=== PATIENT | male | born 1965 | race Caucasian/White ===

== ENCOUNTER 2024-08-24 17:19 | Inpatient (IN) | payer MEDICARE, MEDICAID ==
[2024-08-24] MEDS ORDERED: IBUPROFEN 600 MG TAB PO PRN (17:37)
[2024-08-24] MEDS ORDERED: MAGNESIUM HYDROXIDE 2,400 MG/30 ML CUP PO PRN (17:37)
[2024-08-24] MEDS ORDERED: HALOPERIDOL LACTATE 5 MG/ML 1 ML VIAL IM PRN (17:37)
[2024-08-24] MEDS ORDERED: ACETAMINOPHEN TAB 325 MG TAB PO PRN (17:37)
[2024-08-24] MEDS ORDERED: LORazepam 1 MG TAB PO PRN (17:37)
[2024-08-24] MEDS ORDERED: MAG HYDROX/AL HYDROX/SIMETH 355 ML BOTTLE PO PRN (17:37)
--- NOTE | 2024-08-25 06:03 | P.CONS ---
History of Present Illness - Reason for Consult Consult date: 08/25/24 medical comanagmeent - Chief Complaint SI - History of Present Illness is a 59-year-old male with past medical history of generalized anxiety disorder and ADHD. He presents to hospital today complaining of suicidal ideation. He reports that he has been having thoughts of major depression and wanting to hurt himself. He denies any plan. He did not present to the hospital for evaluation where he was transferred from [facility]. He is currently seen in room 320. His most recent blood pressure was 168/93 with a heart rate of 73 His temperature is 97.6. He reports that he does not feel as if he has a high blood pressure and reports that the machines are defective. He reports that he takes Adderall and Xanax at home. He reports he uses tobacco. Denies any recreational drug use and denies alcohol use. Review of Systems ROS negative except for hpi Past Medical History Past Medical History: No Reported History History of Any Multi-Drug Resistant Organisms: None Reported Past Surgical History: No Surgical Hx Reported Past Anesthesia/Blood Transfusion Reactions: No Reported Reaction Past Psychological History: ADD/ADHD, Anxiety, Bipolar, Depression Smoking Status: Current every day smoker Past Alcohol Use History: None Reported Past Drug Use History: Marijuana Additional Drug Use History / Comment(s): Pt does not report any drug use; but UDS positive for THC Medications and Allergies Allergies Allergy/AdvReac Type Severity Reaction Status Date / Time No Known Allergies Allergy Verified 08/24/24 17:36 Physical Exam Vitals: Vital Signs Temp Pulse Resp BP 08/25/24 01:42 97.6 F 73 18 168/93 Intake and Output 08/24/24 08/24/24 08/25/24 14:59 22:59 06:59 Other: Weight 118 kg 125.1 kg General: non toxic, no distress Derm: warm, dry Head: atraumatic, normocephalic, symmetric Eyes: EOMI, no lid lag, anicteric sclera, pupils equal round reactive to light ENT: Nose and ears atraumatic, no thrush, no pharyngeal erythema Neck: No thyromegaly, no cervical lymphadenopathy, trachea midline, supple Mouth: no lip lesion, mucus membranes moist Cardiovascular: S1S2 reg, no murmur Lungs: clear to ascultation bilatera Abdominal: soft, nontender to palpation, no guarding, no appreciable organomegaly, normal bowel sounds Ext: no gross muscle atrophy, muscle strength muscle strength 5 out of 5 in all 4 extremities, no contractures Neuro: moving all extremeties spontanously Psych:defensive Assessment and Plan Assessment: #) Suicidal ideation, primary management as per psychaitry team #) Elevated BP without formal diagnosis of primary BP. Continue to monitor his blood pressure. He reports that the machines are defective and he does not want to take antihypertensives. I would monitor his blood pressure while inpatient and reconsider starting antihypertensives if persistently elevated #) class 2 obesity, recommend weight loss #) tobacco use, tobacco cessation encouraged. nicotine patch while inpatient #) generalized anxiety disorder on xanax at home #) ADHD on addreall at home CBC CMP A1c lipid profile TSH urine drug screen pending at the time of this writing. Thank you for allowing us to take care of this patient
[2024-08-25] MEDS: NICOTINE 14MG/24HR PATCH TRANSDERM SCH (09:16)
[2024-08-25 09:27] LABS: Basophils # (A) 0.05 10*3/uL (0.00-0.10); Basophils % (A) 0.7 %; Eosinophils # (A) 0.14 10*3/uL (0.04-0.35); Eosinophils % (A) 1.9 %; HCT 45.6 % (39.6-50.0); HGB 15.3 g/dL (13.0-17.0); Lymphocytes # (A) 1.38 10*3/uL (0.90-5.00); Lymphocytes % (A) 19.2 %; MCH 32.5 pg (27.0-32.0); MCHC 33.6 g/dL (32.0-37.0); MCV 96.8 fL (80.0-97.0); Monocytes # (A) 0.52 10*3/uL (0.20-1.00); Monocytes % (A) 7.2 %; Neutrophils # (A) 5.08 10*3/uL (1.80-7.70); Neutrophils % (A) 70.9 %; Platelet Count 182 10*3/uL (140-440); RBC 4.71 10*6/uL (4.40-5.60); RDW 14.2 % (11.5-14.5); WBC 7.18 10*3/uL (4.50-10.00)
[2024-08-25 09:43] LABS: ALT 14 U/L (4-49); AST 15 U/L (17-59); African American GFR (CKD) >90 (>60 ml/min/1.73 sqM); Albumin 4.1 g/dL (3.5-5.0); Alkaline Phosphatase 89 U/L (38-126); Anion Gap 10 mmol/L; Blood Urea Nitrogen 18 mg/dL (9-20); Calcium 9.1 mg/dL (8.4-10.2); Carbon Dioxide 24 mmol/L (22-30); Chloride 108 mmol/L (98-107); Glucose 133 mg/dL (74-99); Non-African American GFR(CKD) >90 (>60 ml/min/1.73 sqM); Potassium 4.5 mmol/L (3.5-5.1); Sodium 142 mmol/L (137-145); Total Protein 6.8 g/dL (6.3-8.2)
--- NOTE | 2024-08-25 12:31 | P.HP ---
Psychiatric H&P - . H&P Date: 08/25/24 History & Physical: Allergies Allergy/AdvReac Type Severity Reaction Status Date / Time No Known Allergies Allergy Verified 08/24/24 17:36 Vital Signs Temp 97.6 F 08/25/24 01:42 Pulse 73 08/25/24 01:42 Resp 18 08/25/24 01:42 BP 168/93 08/25/24 01:42 Pulse Ox FiO2 Intake & Output 08/24/24 08/25/24 08/25/24 18:59 06:59 18:59 Weight 118 kg 125.1 kg Dictation was produced using [employer] dictation software. Please excuse any grammatical, word or spelling errors. IDENTIFYING DATA: Patient is a 59 years old male past psychiatric history of KATTY, and ADHD presenting from [facility] ER with suicidal ideation with no plan. HPI: Patient presented to the hospital as a transfer from [facility], he was presented there for suicidal ideation without a plan, per report he wants to for the past few weeks, not eating or sleeping, has not been compliant with his medication. He has been verbally aggressive however no physical aggression, history of being agitated, anxious, and having hostile mood. Per petition " patient came into ED saying he has had continuous feeling of wanting to harm himself for the past 2-3 weeks. He stated that he came to the ED before he did something to kill himself. He has not been eating or sleeping or taking his psychiatric medications." Per clinical certification " suicidal ideation, no plan, but wants to , not taking his psychiatric medication, not eating or drinking." Upon evaluation in the unit the patient was in his room, agreed to speak with the race and sports book writer in the office, he states that he had bad couple of weeks, being out of his medications, was suicidal however no plan. States that he is willing to get some help. He states that he has been feeling sad, down, depressed for about 2 weeks since he stopped his medications, reported some feeling of being hopeless. He denied any current SI/HI or self harm, states that he has been having some suicidal thoughts for about 2 weeks however he denied any intention or plan, denied any history of suicide. States that he has been sleeping too much, his appetite is not that great for the last 2 weeks. 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 States he has been with out sleep for about 48 hours prior to coming to the hospital, reported that he was having history of bipolar disorder as a child. He reported racing thoughts and flight of ideas. At this time patient denies any auditory or visual hallucinations, paranoia or delusion. Patient denies any recreational drug use and denies alcohol use. States that at times he use cannabis, using tobacco 1/2 PPD. The patient has a good insight into his mental illness, he was calm, cooperative during interview, agreed to follow-up with treatment recommendation. He was able to talk about the last couple of weeks since he has been under stress since his business has been slow down and that is when he had the suicidal thoughts however denied any plan or intention and reported that he immediately asked for help. Reported that he wanted to take his medication and follow-up with his outpatient doctor. PAST PSYCHIATRIC HISTORY: - Inpatient Hospitalizations: pt reported being in the hospital once or twice before - Outpatient Care: Dr. Quinones at [facility] - Current Psychotropics: Adderall 20 mg, Xanax 1mg, Zyprexa 10 mg once in the morning - Prior Psychotropics/Therapy: could not recall - Prior Psychiatric dx: bipolar I disorder - Trauma History: denies - Suicidal attempt: denies PMH: as per ER note Past Medical History: No Reported History History of Any Multi-Drug Resistant Organisms: None Reported Past Surgical History: No Surgical Hx Reported Past Anesthesia/Blood Transfusion Reactions: No Reported Reaction Past Psychological History: ADD/ADHD, Anxiety, Bipolar, Depression Smoking Status: Current every day smoker Past Alcohol Use History: None Reported Past Drug Use History: Marijuana Additional Drug Use History / Comment(s): Pt does not report any drug use; but UDS positive for THC ALLERGIES: as per EMR CHEMICAL DEPENDENCY HISTORY: as per HPI FAMILY PSYCHIATRIC/SUBSTANCE USE HISTORY: sister, dad and son has depression SOCIAL HISTORY: Patient was born and raised in [place], 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 Has 2 sisters lives out of the country. Denied any legal history MENTAL STATUS EXAM: General Appearance: Patient appears to be stated age is alert, directable, and attempts to cooperate. Patient appears to have fair hygiene and grooming. Behavior: Patient is seated without any agitated behavior. Speech: Patient's speech is fluent and nonpressured. Mood/Affect: Patient reports their mood is "down a little", affect is congruent and constricted. Suicidality/Homicidality: Patient denies having any homicidal ideation intent or plan. Denies any suicidal ideations intent or plan. With that he had suicidal thoughts prior to coming to the hospital however denied any current thoughts during assessment Perceptions: Patient denies any visual hallucinations and denies any auditory hallucinations Though content/process: There is no evidence of any delusional thought content and thought process is linear and goal-directed. Memory and concentration: AOX3, grossly intact for the purposes of this session. Judgment and insight: poor STRENGTHS/WEAKNESSES: strength is that patient is resilient. Weakness is that patient has poor judgment and is impulsive INTELLECT: average IMPRESSIONS: Bipolar disorder, depressed Rule out adjustment disorder with anxious and depressed mood Cannabis use Nicotine use disorder PLAN: -Patient is admitted under voluntary status to [facility]HU for stabilization of psychiatric symptoms and safety. Patient has signed adult voluntary form and medication consent and is placed in patient's chart. Initially the patient was on a petition and clinical CERT however he agreed to take his medication and follow our treatment recommendation, will switch to voluntary. -Medications : We will restart the patient home medication which include - Zyprexa 10 mg p.o. at bedtime -Will hold Adderall, and Xanax -The patient agreed with the plan, reported that he is willing to take his medication and is planning to follow-up with his outpatient doctor after discharge. -Ativan and Haldol PRN for agitation/aggression -Patient was counselled on cannabis and tobacco use and desired to cut back on use -Patient was informed of the risks, benefits and side effects of the medication and patient verbally consented to taking the medications. Patient signed med consent form and was placed in chart. -Internal Medicine consult to perform medical evaluation and physical. -NRT - nicotine patch -SW on board for discharge planning. Encourage patient to participate in groups to work on coping skills. Collateral will be helpful from the patient outpatient 08/25/24 09:20 08/25/24 12:00
[2024-08-25 13:36] LABS: Cholesterol 190.00 mg/dL (0.00-200.00); HDL Cholesterol 40.50 mg/dL (40.00-60.00); LDL Cholesterol,Calculated 122.3 mg/dL (0.0-131.0); Triglycerides 136.00 mg/dL (0.00-149.00); VLDL Calculation 27.20 mg/dL (5.00-40.00)
[2024-08-25] MEDS: OLANZapine 10 MG TAB PO SCH (21:10)
--- NOTE | 2024-08-26 14:01 | P.PN ---
Progress Note - Text Progress Note Date: 08/26/24 Dictation was produced using [employer] dictation software. Please excuse any grammatical, word or spelling errors. Interval history: Patient was seen in his room and was directable and agreeable to speak with the publicity writer for psychiatric follow-up. The patient states that he is feeling okay today, reported that his mood is " fine," reported that depression and anxiety to be at the moderate side, he rated both at 6-7 per 10, reported that he is just bored and there is nothing to do here. He denied any current suicidal, self-harm or homicidal thoughts or behavior, auditory or visual hallucination. He states that usually Xanax help him out with his anxiety and he does not want to try any other medication, reported that he does not want to take Ativan. Education was provided into benzodiazepine and we discussed the possibility of starting antidepressant to help with anxiety and depression however patient does not consider that at this time. Reported that he is happy with Zyprexa since it has been helping in the past. He denied any side effects, denied any muscle stiffness, rigidity, abnormal movement, or drooling. He reported good sleep and appetite. Reported that he feels safe in the unit and getting along well with everyone. No other concern at this time. MENTAL STATUS EXAM: General Appearance: Patient appears to be stated age is alert, directable, and attempts to cooperate. Patient appears to have fair hygiene and grooming. Behavior: Patient is seated without any agitated behavior. Speech: Patient's speech is fluent and nonpressured. Mood/Affect: Patient reports their mood is "fine", affect is congruent and constricted. Suicidality/Homicidality: Patient denies having any homicidal ideation intent or plan. Denies any suicidal ideations intent or plan. Perceptions: Patient denies any visual hallucinations and denies any auditory hallucinations Though content/process: There is no evidence of any delusional thought content and thought process is linear and goal-directed. Memory and concentration: AOX3, grossly intact for the purposes of this session. Judgment and insight: poor IMPRESSIONS: Bipolar disorder, depressed Rule out adjustment disorder with anxious and depressed mood Cannabis use Nicotine use disorder PLAN: -Patient continues to meet criteria for inpatient psychiatric admission for symptom stabilization and safety. Patient is admitted under voluntary status to [facility]HU for stabilization of psychiatric symptoms and safety. -Medications : - Continue Zyprexa 10 mg p.o. at bedtime - Continue to hold Adderall, and Xanax -Ativan and Haldol PRN for agitation/aggression -Patient was informed of the risks, benefits and side effects of the medication and patient verbally consented to taking the medications. -SW on board for discharge planning. Encourage patient to participate in groups to work on coping skills, encouraged participation in milieu. Collateral will be helpful from the patient outpatient
--- NOTE | 2024-08-27 11:49 | P.PN ---
Progress Note - Text Progress Note Date: 08/27/24 Interval History: Patient was seen in bed and was directable and agreeable to speak with lyric writer in the room. He request to be put back on his Adderall and Xanax however he was informed that he must supply his own Adderall prescription to the pharmacy to which he states he has not yet filled this medication and thus he is unable to bring this in. He was encouraged to use the as needed Ativan he has here however he declined, stating that he only wants Xanax. Patient reports suicidal ideations, no plan or intent. He was resistant to trialing an antidepressant for the suicidal thoughts, stating Zyprexa and Xanax combination works perfectly for him. He claims to live independently in [facility], has a limited support system, is employed. He reports sleeping and eating well. At this time patient denies any homicidal ideations, intent or plan. Patient denies any auditory, visual hallucinations and denies any paranoia or delusions. Patient denies any side effects from the medications and has been compliant with meds. Mental Status Exam: General Appearance: Patient appears to be stated age is alert, directable, and cooperative. He has questionable grooming and hygiene Behavior: Patient is calmly laying without any agitated behavior. Speech: Patient's speech is fluent and nonpressured. Mood/Affect: Mood is improving mildly, affect is congruent and constricted. Suicidality/Homicidality: Patient denies having any homicidal ideation intent or plan. Patient reports suicidal ideations, passive in nature Perceptions: Patient denies any visual hallucinations and denies any auditory hallucinations Though content/process: There is no evidence of any delusional thought content and thought process is linear and goal-directed. Memory and concentration: AOX3, grossly intact for the purposes of this session Judgment and insight: Improving mildly Assessment Bipolar disorder, current episode depressed Cannabis use disorder Nicotine dependence Plan: -Patient continues to meet criteria for inpatient psychiatric admission for symptom stabilization and safety. Patient has signed adult voluntary form and medication consent and was placed in patient's chart. -Medications: Continue Zyprexa 10 mg at bedtime for bipolar disorder -When necessary Ativan and Haldol for agitation/aggression. -Labs: Reviewed, A1c elevated at 7.6. Patient has been resistant to medication adjustments and he will be encouraged to follow-up with PCP for further management -NRT - nicotine patch -SW on board for discharge planning. Encouraged the patient to participate in milieu. Anticipate discharge home alone tomorrow, patient will need a cab
[2024-08-27 23:57] VITALS: BP 151/92; PULSE 86; RESP 18; TEMP 97.6
--- NOTE | 2024-08-28 13:13 | P.DS ---
Providers Date of admission: 08/25/24 01:41 Expected date of discharge: 08/28/24 Attending physician: Alesha Mayo MD Consults: 08/24/24 17:37 Consult Physician Routine Consulting Provider: Michael Physician Consult Reason/Comments: H & P w/medical mgmt Do you want consulting provider notified?: Yes, Notify in am Primary care physician: Stated None - Discharge Diagnosis(es) (1) Bipolar disorder current episode depressed Current Visit: Yes Status: Acute Priority: High (2) Cannabis use disorder Current Visit: Yes Status: Acute Priority: Low (3) Nicotine dependence Current Visit: Yes Status: Acute Priority: Low Hospital Course: Admission HPI: Admission note was completed by Dr. Byers "Patient presented to the hospital as a transfer from [facility], he was presented there for suicidal ideation without a plan, per report he wants to for the past few weeks, not eating or sleeping, has not been compliant with his medication. He has been verbally aggressive however no physical aggression, history of being agitated, anxious, and having hostile mood. Per petition " patient came into ED saying he has had continuous feeling of wanting to harm himself for the past 2-3 weeks. He stated that he came to the ED before he did something to kill himself. He has not been eating or sleeping or taking his psychiatric medications." Per clinical certification " suicidal ideation, no plan, but wants to , not taking his psychiatric medication, not eating or drinking." Upon evaluation in the unit the patient was in his room, agreed to speak with the automatic typewriter inspector in the office, he states that he had bad couple of weeks, being out of his medications, was suicidal however no plan. States that he is willing to get some help. He states that he has been feeling sad, down, depressed for about 2 weeks since he stopped his medications, reported some feeling of being hopeless. He denied any current SI/HI or self harm, states that he has been having some suicidal thoughts for about 2 weeks however he denied any intention or plan, denied any history of suicide. States that he has been sleeping too much, his appetite is not that great for the last 2 weeks. 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 States he has been with out sleep for about 48 hours prior to coming to the hospital, reported that he was having history of bipolar disorder as a child. He reported racing thoughts and flight of ideas. At this time patient denies any auditory or visual hallucinations, paranoia or delusion. Patient denies any recreational drug use and denies alcohol use. States that at times he use cannabis, using tobacco 1/2 PPD." Hospital course: Upon admission to the unit patient was directable and agreeable to commence treatment and signed adult voluntary form. Patient got along well with other patients on the unit and followed unit protocol. Patient was compliant with the medications and denied any side effects throughout hospital course. Patient was started on Zyprexa 10 mg at bedtime for bipolar disorder. Patient was resistant to trialing an antidepressant despite several attempts. Patient spoke of his stressors and engaged in therapy both group and individual. Patient was also seen by medical team for history and physical exam. Throughout the course of the hospitalization patient gradually improved with regards to mood, anxiety, sleep and returned back to their baseline level of functioning. On the day of discharge patient denied any suicidal or homicidal ideations intent or plan denied any auditory or visual hallucinations. The patient denied any access to guns or weapons. Patient denied any paranoia and did not endorse any delusions. Patient does not have a significant history of substance abuse and was counseled on abstaining from all substances including alcohol and marijuana. Patient was also counseled on the medications and need for regular compliance and was encouraged to follow-up with their outpatient appointment for mental health and also for primary care. Patient to be discharged home alone and will follow-up with [facility]. Mental status exam: General Appearance: Patient appears to be stated age is alert, pleasant, and cooperative. Patient is in no acute distress and has fair hygiene and grooming Behavior: Patient is calmly seated without any agitated behavior. Speech: Patient's speech is fluent and nonpressured. Mood/Affect: Patient reports their mood is "good", affect is congruent and euthymic. Suicidality/Homicidality: Patient denies having any suicidal or homicidal ideation intent or plan. Perceptions: Patient denies any auditory or visual hallucinations. Though content/process: There is no evidence of any delusional thought content and thought process is linear and goal-directed. Memory and concentration: AOX3, grossly intact for the purposes of this session. Can spell "WORLD" backwards correctly. Judgment and insight: Fair Impression: Bipolar disorder, current episode depressed Cannabis use disorder Nicotine dependence Plan: -Continue with discharge today as patient has improved and stabilized psychiatrically and is not currently an imminent threat to themself and/or others. -Continue medications: Zyprexa 10 mg at bedtime -Patient was counseled on the need for medication compliance and appropriate follow-up at mental health and also primary care for medical issues. Patient verbalized understanding and agreed. -Social work to help coordinate patients discharge today. also to ensure safe home environment that guns/weapons are either removed from the home or locked away. Social work also to arrange for patients follow up appointments with [facility] for psychiatric care along with follow up with primary care provider. -Patient counseled on abstaining from recreational drugs and marijuana and alcohol. Was informed/educated on the adverse effects on their physical and mental health. Patient verbally agreed and understood. -Patient was instructed to return to the hospital or seek immediate medical care if their psychiatric or medical symptoms do worsen or reoccur. Abnormal Labs 08/25/24 08/25/24 08/25/24 08:32 08:32 08:32 MCH 32.5 H Chloride 108 H Glucose 133 H Hemoglobin A1c 7.6 H AST 15 L Allergies Allergy/AdvReac Type Severity Reaction Status Date / Time No Known Allergies Allergy Verified 08/24/24 17:36 Vital Signs Temp 97.6 F 08/27/24 21:00 Pulse 86 08/27/24 21:00 Resp 18 08/27/24 21:00 BP 151/92 08/27/24 21:00 Pulse Ox 99 08/27/24 21:00 FiO2 Patient Condition at Discharge: Stable Plan - Discharge Summary Discharge Rx Participant: No New Discharge Prescriptions: New Nicotine 14Mg/24Hr Patch [Habitrol] 1 patch TRANSDERM DAILY patch OLANZapine [ZyPREXA] 10 mg PO HS 30 Days #30 tab Discharge Medication List Nicotine 14Mg/24Hr Patch [Habitrol] 1 patch TRANSDERM DAILY patch 08/28/24 [Rx] OLANZapine [ZyPREXA] 10 mg PO HS 30 Days #30 tab 08/28/24 [Rx] Follow up Appointment(s)/Referral(s): , dina [Other] - 1 Week Tim SUAZO [Other] - 1 Week (08/31/24 @ 10am) Patient Instructions/Handouts: How to Stop Smoking (DC), Bipolar Disorder (DC), Cannabis Abuse (DC) Activity/Diet/Wound Care/Special Instructions: [facility] Discharge Info Avoid the use of street drugs and alcohol. Take all medications as prescribed. When you are in need of refills on your medications, please contact your outpatient medical provider and/or outpatient psychiatrist. Please go to your scheduled outpatient appointments for aftercare treatment. If symptoms return or become worse, call the crisis line at or and/or visit the nearest emergency room for assistance. [place] [facility] Lifeline - call or text 876.Medical physician recommends to follow up outpatient in 4-6 weeks to have thyroid levels checked again. Recommendations to have an EMG outpatient on bilateral upper extremities for probable bilateral carpal tunnel. Discharge Disposition: HOME SELF-CARE
== END 2024-08-28 10:51 | disposition home or self-care (01) | DRG 885 ==
LOC: 3MHU 08-25 01:41
PROVIDERS: ADMIT Psychiatry & Neurology Psychiatry; ATTEND Psychiatry & Neurology Psychiatry
DX: F31.30 Bipolar disorder, current episode depressed, mild or moderate severity, unspecified (principal); R45.851 Suicidal ideations; F12.10 Cannabis abuse, uncomplicated; E66.812 Obesity, class 2; Z68.38 Body mass index [BMI] 38.0-38.9, adult; F17.210 Nicotine dependence, cigarettes, uncomplicated; F41.1 Generalized anxiety disorder; F90.9 Attention-deficit hyperactivity disorder, unspecified type; R03.0 Elevated blood-pressure reading, without diagnosis of hypertension; Z79.899 Other long term (current) drug therapy; Z71.3 Dietary counseling and surveillance
CPT/HCPCS: 80053; 80061; 83036; 84443; 85025